=== PATIENT | male | born 1960 | race Caucasian/White ===

== ENCOUNTER 2018-12-23 02:30 | Emergency (ER) | payer MEDICARE ==
[~2018-12-23] VITALS: Ht 175.3 cm; Wt 113.6 kg
[~2018-12-23 02:30] MED LIST: BACTRIM DS1 TAB OR; CLONAZEP ODT1 MG OR; DILAUDID8 MG PO; DOXYCYCL HYC100 MG PO; FLEXERIL PO; KEFLEX500 MG PO; METHADONE10 M1 PO; METHADONE10 MG OR; METHADONE40 MG PO; MORPHINE SUL30 M3 PO; MS CONTIN30 MG PO; NEXIUM40 M1 OR; OMEPRAZOLE20 M2 PO; PROTONIX40 MG OR; ROXICODONE30 MG OR; ZANAFLEX4 MG PO; ZOFRAN ODT4 MG OR; ZOFRAN ODT4 MG PO; ZOLOFT100 MG PO; ZOLOFT25 MG PO; [UNRECOGNIZED DRUG - OTHER] OR
[2018-12-23 03:26] LABS: IMMATURE GRANULOCYTES 0.4 % (0.0-5.0); MEAN CELL VOLUME 81.8 fL CALC (80.0-100.0); MEAN CORPUSCULAR HGB 27.6 pG CALC (26.0-32.0); MEAN CORPUSCULAR HGB CONC 33.8 g/L CALC (32.0-36.0); NEUT# 9.63 thou/uL (1.82-7.42); RED BLOOD COUNT 5.32 mill/uL (4.70-6.10)
[2018-12-23 03:32] LABS: ALBUMIN 4.8 g/dL (3.2-5.0); ALKALINE PHOSPHATASE 100 u/l (38-126); AMYLASE 53 u/l (30-110); ANION GAP 15 (6-22 (CALC)); BILIRUBIN, TOTAL 1.2 mg/dL (0.0-1.4); BUN 6 mg/dL (9-20); BUN/CREATININE RATIO 8 (12-20 (CALC)); CARBON DIOXIDE 25 mmol/l (22-30); CHLORIDE 105 mmol/l (95-108); CREATININE 0.7 mg/dL (0.7-1.3); GFR > 60 ML/MIN (>=60 (CALC)); GFR FOR AFR.AMER. > 60 ML/MIN (>=60 (CALC)); LIPASE 76 u/l (23-300); POTASSIUM 3.8 mmol/l (3.5-5.1); SGOT/AST 37 u/l (17-59); SODIUM 142 mmol/l (137-146)
[2018-12-23 03:38] LABS: HEMATOCRIT 43.5 % (39.0-50.0); HEMOGLOBIN 14.7 g/dl (14.0-18.0)
[2018-12-23 03:48] LABS: URINE BILIRUBIN - DIPSTICK NEGATIVE (NEGATIVE); URINE BLOOD DIPSTICK TRACE-INTACT (NEGATIVE); URINE COLOR YELLOW; URINE GLUCOSE - DIPSTICK NEGATIVE (NEGATIVE); URINE KETONE NEGATIVE (NEGATIVE); URINE LEUK ESTERASE NEGATIVE (NEGATIVE); URINE NITRITE - DIPSTICK NEGATIVE (Negative); URINE PH 7.5 (4.5-8.0); URINE PROTEIN - DIPSTICK NEGATIVE (NEG-TRACE); URINE UROBILINOGEN - DIPSTICK 0.2 E.U./dL (0.2)
[2018-12-23] MEDS ORDERED: PROCHLORPER25 MG RE (04:38)
[2018-12-23 04:49] VITALS: BP 152/67
== END 2018-12-23 05:01 | disposition home or self-care (01) ==
LOC: ED 02:30
PROVIDERS: Family Medicine
DX: K52.9 Noninfective gastroenteritis and colitis, unspecified (principal); G89.29 Other chronic pain; M54.2 Cervicalgia; M54.9 Dorsalgia, unspecified

== ENCOUNTER 2021-08-30 04:36 | Emergency (ER) | payer MEDICARE ==
[~2021-08-30] VITALS: Ht 175.3 cm; Wt 107.0 kg
[~2021-08-30 04:36] MED LIST changes: +PROCHLORPER25 MG RE
[2021-08-30] MEDS ORDERED: CLARITHROMYCIN500 MG PO ×2 (05:06→05:58)
[2021-08-30] MEDS ORDERED: PREDNISONE50 MG PO ×2 (05:07→05:58)
[2021-08-30] MEDS ORDERED: HYDROXYZ PAM50 MG PO ×2 (05:07→05:58)
[2021-08-30 05:38] VITALS: BP 186/74
== END 2021-08-30 06:05 | disposition home or self-care (01) ==
LOC: ED 04:36
DX: R22.0 Localized swelling, mass and lump, head (principal); L29.9 Pruritus, unspecified; T36.8X5A Adverse effect of other systemic antibiotics, initial encounter

== ENCOUNTER 2022-11-07 10:53 | Emergency (ER) | payer MEDICARE ==
[~2022-11-07] VITALS: Ht 175.3 cm; Wt 100.0 kg
[2022-11-07] VITALS (11 sets, daily range): BP systolic 121–173; BP diastolic 44–72
[~2022-11-07 10:53] MED LIST changes: +CLARITHROMYCIN500 MG PO; +HYDROXYZ PAM50 MG PO; +PREDNISONE50 MG PO
[2022-11-07] MEDS ORDERED: DOXY-CAPS100 MG PO (13:51)
== END 2022-11-07 14:53 | disposition home or self-care (01) ==
LOC: ED 10:53
DX: J06.9 Acute upper respiratory infection, unspecified (principal); I48.91 Unspecified atrial fibrillation; Z79.01 Long term (current) use of anticoagulants; Z20.822 Contact with and (suspected) exposure to COVID-19